=== PATIENT | male | born 2000 | race Caucasian/White ===

== ENCOUNTER 2024-12-23 03:59 | Emergency (ER) | payer BC ==
[2024-12-23 04:15] LABS: #Basophils 0.09 10x3/uL (0.0-0.2); #Eosinophils 0.37 10x3/uL (0.0-0.5); #Monocytes 0.55 10x3/uL (0.0-1.1); #Neutrophils 4.08 10x3/uL (1.5-8.4); %Basophils 1.0 % (0.0-2.0); %Eosinophils 4.3 % (0.0-6.0); %Lymphocytes 40.8 % (18.0-47.0); %Monocytes 6.4 % (0.0-10.0); %Neutrophils 47.3 % (40.0-75.0); Hematocrit 41.0 % (38.8-50.0); Hemoglobin 14.5 g/dL (13.5-17.5); Mean Corpuscular Hemoglobin 30.9 pg (27.0-33.0); Mean Corpuscular Volume 87.4 fL (81.2-95.1); Platelet Count 267 10x3/uL (150-450); Red Blood Cell (RBC) Count 4.69 10x6/uL (4.32-5.72); White Blood Cell (WBC) Count 8.63 10x3/uL (3.5-10.5)
[2024-12-23 04:29] LABS: INR-International Normal Ratio 1.0; PTT 27.6 sec (22.0-33.0); Prothrombin Time 10.8 sec (9.5-12.1)
[2024-12-23 04:30] LABS: Acetaminophen Less than 10 mcg/mL (Less than 10); Magnesium 2.3 mg/dL (1.6-2.6); Salicylate Less than 8.0 mg/dL (Less than 8.0)
[2024-12-23 04:31] LABS: ALT (SGPT) 16 U/L (Less than 45); AST (SGOT) 27 U/L (11-34); Albumin 5.0 g/dL (3.1-4.5); Alkaline Phosphatase 74 U/L (40-110); Anion Gap 16 mmol/L (10-20); BUN (Urea Nitrogen) 12 mg/dL (8.9-20.6); Bilirubin, Total 0.7 mg/dL (0.3-1.2); Calc. Creatinine Clearance 0 mL/min (70-130); Calcium 9.6 mg/dL (7.8-10.44); Carbon Dioxide 25 mmol/L (22-29); Chloride 105 mmol/L (98-107); Globulin 2.9 g/dL (2.4-3.5); Glucose 68 mg/dL (70-105); Potassium 4.6 mmol/L (3.5-5.1); Sodium 141 mmol/L (136-145)
[2024-12-23 04:39] LABS: Troponin I Less than 0.010 ng/mL (< 0.028)
[2024-12-23] MEDS ORDERED: Iopamidol 370 76% 100 ML VIAL ONE (11:25)
== END 2024-12-23 05:03 | disposition home or self-care (01) ==
LOC: CSHERS 03:59
DX: R07.9 Chest pain, unspecified (principal)
CPT/HCPCS: 71275; 74174; 80053; 80307; 83735; 83880; 84443; 84484; 85025; 85610; 85730; 93005